=== PATIENT | male | born 1965 | race Caucasian/White ===

== ENCOUNTER 2024-11-14 17:50 | Emergency (ER) | payer BC, SELFPAY ==
[2024-11-14 18:15] VITALS: BP 207/93; PULSE 70; RESP 18; TEMP 36.9; O2SAT 97; BMI 41.5
--- NOTE | 2024-11-14 18:17 | ED.GENADULT ---
[facility] - General Adult General Chief complaint: Extremity Problem Stated complaint: ?Cellulitis, sent from Time Seen by Provider: 11/14/24 18:39 Source: patient Mode of arrival: ambulatory Limitations: no limitations History of Present Illness ED Provider: Dr. Chopra [facility] narrative: This is a 59-year-old male history of hypertension presented hospital today for ongoing rash and evaluate for cellulitis. Patient went to urgent care. And was sent to the ER for further evaluation. Patient stated that his wound in his lower extremity has been weeping more. Has been more swollen. The skin has been sloughing off. Patient denies any new medication initiation. Patient stated that this started initially as a pruritic rash. He thought he may have poison tari. This started approximately last Sunday. He is not complain of any fever not complaining of any other symptoms besides leg swelling and pain. Related Data Previous Rx's ?Medication ?Instructions ?Recorded ciprofloxacin HCl 500 mg tablet 500 mg PO Q12H 7 days #14 tabs 11/15/24 doxycycline hyclate 100 mg capsule 100 mg PO BID 7 days #14 caps 11/15/24 oxycodone 5 mg tablet 5 mg PO Q8H PRN pain #12 tabs 11/15/24 Allergies Allergy/AdvReac Type Severity Reaction Status Date / Time No Known Allergies Allergy Verified 11/14/24 18:17 Review of Systems Review of Systems: Pertinent review of systems as mentioned in HPI. All other system otherwise negative. [facility] Past Medical History [facility] Narrative: Hypertension Social History Social History Advance Directives: No Advance Directives Information Provided: No Physical Exam ED Exam Exam: General: Pleasant, no distress, interacting appropriately Head: Normacephalic, atraumatic ENT: oral mucosa moist, neck supple, no tracheal deviation Cardiovascular: regular rate, regular rhythm, no murmurs, rubbing, gallops, Respiratory: CTAB, no wheeze, rales, rhonchi Gastrointestinal: Soft, non distended, non tender, non guarding Extremities: Patient has swollen bilateral lower extremity, there is some skin sloughing off his dorsum of his foot bilaterally, appears to be red in nature consistent with a possible cellulitis. Neurological: Awake and alert, no facial droop noted Skin: Warm and dry Psychiatric: Appropriate mood and thoughts Vital Signs: Vital Signs - 24 hr 11/14/24 18:15 11/14/24 18:36 11/14/24 20:29 Temperature 98.4 F 99.2 F 99.5 F Pulse Rate 70 71 69 Respiratory Rate 18 18 12 Blood Pressure 207/93 H 177/77 H 172/70 H Pulse Oximetry 97 97 97 Oxygen Delivery Method Room Air Room Air Room Air 11/14/24 22:17 11/15/24 01:23 11/15/24 01:37 Temperature 98.6 F 98.9 F 98.9 F Pulse Rate 76 83 83 Respiratory Rate 16 16 16 Blood Pressure 167/70 H 179/69 H 179/69 H Pulse Oximetry 95 98 98 Oxygen Delivery Method Room Air Room Air Room Air BMI result Body Mass Index 41.5 Course Course Course Narrative: Rapid medical examination performed in triage by Saritha Ahumada PA-C. Patient is a 59 year old assigned male at presenting to the emergency department with bilateral lower leg redness / weeping. Detailed physical exam and review of systems are deferred to the children's librarian. Labs ordered. Patient placed back in the waiting room pending room availability and results. Medications Administered Discontinued Medications Generic Name Dose Route Start Last Admin Trade Name Ashokq PRN Reason Stop Dose Admin Ceftriaxone Sodium 1 gm 11/14/24 18:50 11/14/24 19:21 Ceftriaxone Sodium 1 Gm Vial IVPUSH 11/14/24 18:51 1 gm ONCE ONE Administration Sodium Chloride 1,000 mls @ 999 mls/hr 11/14/24 19:00 11/14/24 20:41 Ns IV 11/14/24 20:00 Infused .Q1H1M SHIRA Infusion Vancomycin HCl 2,000 mg in 500 mls @ 250 mls/hr 11/14/24 22:43 11/15/24 01:06 Vancomycin/Ns IV 11/15/24 00:42 Infused ONCE ONE Infusion Morphine Sulfate 4 mg 11/14/24 20:50 11/14/24 21:01 Morphine Sulfate 4 Mg/Ml Cartridge IVPUSH 11/14/24 20:51 4 mg ONCE ONE Administration Protocol Medical Decision Making Medical Decision Making MDM Narrative: 59-year-old male presented hospital today for evaluation of cellulitis in bilateral lower extremity. Certainly differential his possible Bowling-Akash syndrome versus cellulitis, On exam patient does have sloughing of his skin. His lower extremity does appear to be red however his anterior thorax is red in nature as well. He has no mucosal involvement at this time. He is having some pain in his lower extremity. CBC did not show sign of leukocytosis slight anemia hemoglobin 13.9. Patient's chemistries unremarkable, patient does have elevated CRP at 3.43. Mild transaminitis likely secondary to effect I did discuss the case with the hospitalist Dr. Salvador. He has evaluated the patient and recommend transfer to a tertiary center for further monitoring of possible Bowling-Akash syndrome. IV vancomycin will be given to patient I discussed this option with the patient. I recommended transfer to an ICU either [facility] or [facility] for further monitoring of his lesions. Patient is currently out of state visiting. He is from [place]. Patient states he is worried that his insurance may not cover his admission. He is worried about the potential financial consequences. Patient stated that he would prefer to be discharged on oral antibiotic in discuss further options with his insurance company. I did discuss the risk to this option with the patient. He understands the risk. Risk including and worsening of his condition. Differential Diagnosis Differential Diagnoses: The differential diagnosis associated with the presentation includes Zain Akash syndrome, cellulitis, leg edema, poison tari Consult Healthcare Provider Management of the patient was discussed with: Hospitalist (Dr. Mckeon) Lab Data MDM Lab Attestation statement: I reviewed the patient's lab results. 11/14/24 18:43 11/14/24 18:43 Labs: Lab Results 11/14/24 11/14/24 Range/Units 18:43 19:02 WBC 10.6 (4.8-10.8) X10*3/uL RBC 4.57 L (4.60-5.80) X10*6/uL Hgb 13.9 L (14.0-18.0) g/dl Hct 41.2 L (42.0-52.0) % MCV 90.2 (80.0-98.0) fL MCH 30.4 (27.0-33.0) pg MCHC 33.7 (31.0-36.0) g/dl RDW 12.6 (11.0-16.0) % Plt Count 340 (160-400) X10*3/uL MPV 9.1 L (9.4-12.4) fL Immature Gran % (Auto) 0.9 H (0.0-0.4) % Neut % (Auto) 66.2 (45-73) % Lymph % (Auto) 15.1 L (20-40) % [place] % (Auto) 7.4 (2-11) % Eos % (Auto) 10.0 H (0-4) % Baso % (Auto) 0.4 (0-2) % Lymph # (Auto) 1.6 (1.2-4.9) X10*3/uL [place] # (Auto) 0.8 (0.1-1.2) X10*3/uL Eos # (Auto) 1.1 H (0.0-0.4) X10*3/uL Baso # (Auto) 0.0 (0.0-0.2) X10*3/uL Abs Immat Gran (auto) 0.09 H (0.00-0.03) X10*3/uL Absolute Neuts (auto) 7.0 (2.0-8.3) x10*3/uL Absolute Nucleated RBC 0.000 (0.0-0.012) X10*3/uL Nucleated RBC % (auto) 0.0 (0.0-0.2) /100WBC ESR 14 (0-15) MM/HR Sodium 144 (135-145) mmol/L Potassium 4.0 (3.3-5.1) mmol/L Chloride 108 (96-108) mmol/L Carbon Dioxide 28 (22-29) mmol/L Anion Gap 12 (12-20) BUN 17 H (9-16) mg/dL Creatinine 1.20 (0.5-1.4) mg/dL Estim Creat Clear Calc 98.4 Estimated GFR > 60 Random Glucose 103 (60-115) mg/dL Lactic Acid 0.8 (0.5-2.0) mmol/L Calcium 9.3 (8.4-10.2) mg/dL Total Bilirubin 0.4 (0.0-1.0) mg/dL AST 38 H (5-37) U/L ALT 43 H (0-40) U/L Alkaline Phosphatase 82 (39-117) U/L C-Reactive Protein 3.43 H (< or = 0.50) mg/dL B-Natriuretic Peptide 12 (<100) pg/mL Total Protein 7.5 (6.5-8.0) g/dL Albumin 4.6 (3.5-5.0) g/dL Discharge Plan Discharge Clinical Impression: Cellulitis Qualifiers: Site of cellulitis: extremity Site of cellulitis of extremity: lower extremity Laterality: unspecified laterality Qualified Code(s): L03.119 - Cellulitis of unspecified part of limb Patient Disposition: Home, Self-Care Instructions: Cellulitis (ED) Additional Instructions: I am concern you may have signs of Zain Akash Syndrome. Return to ED if rash is worsening and you are not feeling well. Prescriptions: New doxycycline hyclate 100 mg capsule 100 mg PO BID 7 Days Qty: 14 0RF ciprofloxacin HCl 500 mg tablet 500 mg PO Q12H 7 Days Qty: 14 0RF oxycodone 5 mg tablet 5 mg PO Q8H PRN (Reason: pain) Qty: 12 0RF Rx Instructions: Partial Fill upon patient request. Interventions: ED Discharge Assessment Last Done: 11/15/24 01:37 Discharge Date/Time: 11/15/24 01:38 Print Language: [place]
[2024-11-14 18:36] VITALS: BP 177/77; PULSE 71; RESP 18; TEMP 37.3; O2SAT 97
[2024-11-14 18:49] LABS: MANUAL DIFF FLAG NO
[2024-11-14 19:04] LABS: Alanine Aminotransferase 43 U/L (0-40); Albumin Level 4.6 g/dL (3.5-5.0); Alkaline Phosphatase 82 U/L (39-117); Anion Gap 12 (12-20); Aspartate Amino Transferase 38 U/L (5-37); Blood Urea Nitrogen 17 mg/dL (9-16); Calcium 9.3 mg/dL (8.4-10.2); Carbon Dioxide 28 mmol/L (22-29); Chloride 108 mmol/L (96-108); Creatinine Clr Calc Pharmacy 98.4; Estimated Glomerular Filt Rate > 60; Potassium 4.0 mmol/L (3.3-5.1); Sodium 144 mmol/L (135-145); Total Protein 7.5 g/dL (6.5-8.0)
[2024-11-14 19:10] LABS: Hematocrit 41.2 % (42.0-52.0); Hemoglobin 13.9 g/dl (14.0-18.0); Imm Gran Abs Auto 0.09 X10*3/uL (0.00-0.03); Imm Gran Pct Auto 0.9 % (0.0-0.4); Lymphocytes Absolute Auto 1.6 X10*3/uL (1.2-4.9); Mean Corpuscular HGB Conc 33.7 g/dl (31.0-36.0); Mean Corpuscular Hemoglobin 30.4 pg (27.0-33.0); Mean Corpuscular Volume 90.2 fL (80.0-98.0); NRBC Abs Auto 0.000 X10*3/uL (0.0-0.012); NRBC Pct Auto 0.0 /100WBC (0.0-0.2); Platelet Count 340 X10*3/uL (160-400); Red Blood Count 4.57 X10*6/uL (4.60-5.80); White Blood Count 10.6 X10*3/uL (4.8-10.8)
--- NOTE | 2024-11-14 19:27 | PC.NURSE ---
assumed care of pt, IV placed in L ac, blood cultures drawn and pt medicated per MAY.
[2024-11-14 19:33] LABS: B Type Natriuretic Peptide 12 pg/mL (<100)
[2024-11-14 20:29] VITALS: BP 172/70; PULSE 69; RESP 12; TEMP 37.5; O2SAT 97
--- NOTE | 2024-11-14 21:07 | PC.NURSE ---
provider at bedside evaluating pt lower extremities. pt medicated per MAR.
[2024-11-14 22:17] VITALS: BP 167/70; PULSE 76; RESP 16; TEMP 37; O2SAT 95
[2024-11-14] MEDS: vancomycin/NS 2,000 MG/500 ML PLAST..BAG 250 MG IV (22:57)
[2024-11-15 01:23] VITALS: BP 179/69; PULSE 83; RESP 16; TEMP 37.2; O2SAT 98
[2024-11-15 01:37] VITALS: BP 179/69; PULSE 83; RESP 16; TEMP 37.2; O2SAT 98
== END 2024-11-15 01:38 | disposition home or self-care (01) ==
PROVIDERS: Physician Assistant Medical; Emergency Provider Student in an Organized Health Care Education/Training Program
DX: R21 Rash and other nonspecific skin eruption (principal); M79.89 Other specified soft tissue disorders; I10 Essential (primary) hypertension; L03.116 Cellulitis of left lower limb; Z79.899 Other long term (current) drug therapy
CPT/HCPCS: 36415; 80053; 83605; 83880; 85025; 85652; 86140; 87040; 96361; 96365; 96366; 96375; 99284; J0696; J2270; J3373